=== PATIENT | female | born 1980 | race Hispanic/Latino ===

== ENCOUNTER 2016-11-27 19:25 | Emergency (ER) | payer OTHER ==
[~2016-11-27] VITALS: Ht 160 cm; Wt 88.6 kg
[~2016-11-27 19:25] MED LIST: CHOL500050 PO; LISI-567 PO; [UNRECOGNIZED DRUG - CODE] OT
[2016-11-27 19:39] VITALS: BP 193/85; PULSE 57; RESP 16; O2SAT 96
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
[2016-11-27 20:50] LABS: BASOPHILS % (AUTO) 0.4 % (0-3); EOSINOPHILS % (AUTO) 1.4 % (0-5); MONOCYTES % (AUTO) 6.3 % (4-12); Mean Corpuscular Hemoglobin 27.4 pg (27.0-35.0); Mean Corpuscular Volume 83.9 fL (81-100); NEUTROPHILS % (AUTO) 71.8 % (40-74); Platelet Count 276 bil/L (150-400)
[2016-11-27 20:53] LABS: APPEARANCE,URINE CLOUDY (CLEAR,HAZY); COLOR,URINE YELLOW (YELLOW); OCCULT BLOOD,URINE NEGATIVE (NEGATIVE); PH,URINE 6.5 (5.0-8.0); UROBILINOGEN,URINE NORMAL (NORMAL)
[2016-11-27 21:13] LABS: Magnesium 1.7 mg/dL (1.6-2.6)
[2016-11-27] MEDS ORDERED: Ondansetron 2 mg/mL 2 mL Inj IVPUSH PRN (21:15)
[2016-11-27] MEDS ORDERED: _HYDROcodone/APAP 5-325 mg Tablet PO PRN (21:55)
[2016-11-27] MEDS ORDERED: cefTRIAXone Inj 250 MG, Lidocaine PF 1% Inj 0.9 ML in Syringe 1 EACH IM ONE (22:00)
[2016-11-27 22:34] VITALS: BP 162/80; PULSE 62; RESP 16; O2SAT 97
--- NOTE | 2016-11-28 07:28 | DRSVH ---
PROCEDURE: US PELVIC SONOGRAM + TRANSVAGINAL SONOGRAM INDICATIONS: left pelvic pain TECHNIQUE: Real-time scanning was performed of the pelvic organs, with image documentation. Additional endovagi nal scanning was necessary due to incomplete visualization of the adnexal and endometrial structures by transabdominal scanning. COMPARISON: None. FINDINGS: Transabdominal scanning: Limited scanning through the kidneys shows no hydronephrosis. No pathologi c free abdominal or pelvic fluid. Endovaginal scanning: Uterus: Uterus is normal in size at 10.0 x 5.0 x 5.6 cm. endometrium has a thickened, heterogeneous appearance and measures up to 16 mm in diameter. There is no discrete vascularity within the endometr ium. No finding to suggest a vascular stalk. Ovaries: The right ovary measures 2.7 x 2.5 x 1.9 cm and has a normal appearance. The left ovary is n ot visualized. IMPRESSION: 1. Heterogeneous, thickened endometrium. Although this may represent tumefactive thrombus within the endometrial canal, polyp or tumor cannot be excluded. Short interval sonographic followup is recommen ded. Additionally, hysterosonogram may be helpful to further characterize findings. These findings are concordant with the overnight interpretation. Dictated by: Christine Schreiber M.D. on 11/28/2016 at 7:13 Approved by: Christine Schreiber M.D. on 11/28/2016 at 7:27
== END 2016-11-27 22:36 | disposition home or self-care (01) ==
LOC: SED 19:25
DX: R10.2 Pelvic and perineal pain (principal); R93.5 Abnormal findings on diagnostic imaging of other abdominal regions, including retroperitoneum; I10 Essential (primary) hypertension; E11.9 Type 2 diabetes mellitus without complications; J45.909 Unspecified asthma, uncomplicated; Z87.891 Personal history of nicotine dependence; Z91.018 Allergy to other foods; Z91.040 Latex allergy status
CPT/HCPCS: 36415; 76830; 76856; 80053; 81000; 81025; 83690; 83735; 85025; 87491; 87591; 96372; 99285; J0696